=== PATIENT | female | born 2005 | race Caucasian/White ===

== ENCOUNTER 2024-11-27 19:59 | Emergency (ER) | payer OTHER, SELFPAY ==
[2024-11-27 20:01] VITALS: BP 133/75; PULSE 88; RESP 16; TEMP 36.8; O2SAT 97; BMI 25.5
--- OUTSIDE RECORDS SUMMARY | 2024-11-27 20:01 | XMS_ITS | Encounter Summary ---
Author Organization [facility] Address [address] [place] [address] Care Team Providers Care Poultry Slaughterer Name Role Phone Elijah Gaming (Ana Maria) Primary Care Provider Unavailable Encounter Details Date Type Department Care Team (Late st Contact Info) Description 12/28/2005 Outpatient Historical [facility], [facility] [address] [place], [place] [address] Social History Tobacco Use Types Packs/Day Years Used Date Smoking Tobacco: Never Assessed Comments Unknown Sex and Gender Information Value Date Recorded Sex Assigned at Not on file Legal Sex Female 7:49 AM CERTIFIED TRAVEL COUNSELOR Gender Identity Not on file Sexual Orientation Not on file documented as of this encounter Plan of Treatment Not on file documented as of this encounter Visit Diagnoses Not on filedocumented in this encounter Care Teams Poultry Slaughterer Relationship Specialty Start Date End Date Elijah Gaming MD (Rvpcs) PCP - General 12/04/15 documented as of this encounter
--- OUTSIDE RECORDS SUMMARY | 2024-11-27 20:01 | XMS_ITS | Encounter Summary ---
Author Organization [facility] Address [address] [place] [address] Care Team Providers Care Fire Extinguisher Technician Name Role Phone Elijah Gaming (Ana Maria) Primary Care Provider Unavailable Encounter Details Date Type Department Care Team (Late st Contact Info) Description 04/04/2007 Emergency [facility] Emergency Department [address] [place] [address] Carl Noel MD Unspecified Otitis Media (Primary Dx) Social History Tobacco Use Types Packs/Day Years Used Date Smoking Tobacco: Never Assessed Comments Unknown Sex and Gender Information Value Date Recorded Sex Assigned at Not on file Legal Sex Female 7:49 AM ART CONSULTANT Gender Identity Not on file Sexual Orientation Not on file documented as of this encounter Plan of Treatment Not on file documented as of this encounter Visit Diagnoses Diagnosis Unspecified otitis media- Primary documented in this encounter Care Teams Fire Extinguisher Technician Relationship Specialty Start Date End Date Elijah Gaming MD (Rvpcs) PCP - General 12/04/15 documented as of this encounter
--- OUTSIDE RECORDS SUMMARY | 2024-11-27 20:01 | XMS_ITS | Encounter Summary ---
Author Organization [facility] Address [address] [place] [phone] Care Team Providers Care Member Of The Legislative Council Name Role Phone Elijah Gaming (rey) Primary Care Provider Unavailable Encounter Details Date Type Department Care Team (Late st Contact Info) Description 04/10/2007 Outpatient Historical HIS MISCELLANEOUSSTE Outsideservice, Physician Social History Tobacco Use Types Packs/Day Years Used Date Smoking Tobacco: Never Assessed Comments Unknown Sex and Gender Information Value Date Recorded Sex Assigned at Not on file Legal Sex Female 7:49 AM INSURANCE AGENTS SUPERVISOR Gender Identity Not on file Sexual Orientation Not on file documented as of this encounter Plan of Treatment Not on file documented as of this encounter Visit Diagnoses Not on filedocumented in this encounter Care Teams Member Of The Legislative Council Relationship Specialty Start Date End Date Elijah Gaming MD (Rvpcs) PCP - General 12/04/15 documented as of this encounter
--- OUTSIDE RECORDS SUMMARY | 2024-11-27 20:01 | XMS_ITS | Encounter Summary ---
Author Organization [facility] Address [address] [place] [address] Care Team Providers Care Warehouse Loader Name Role Phone Elijah Gaming (Ana Maria) Primary Care Provider Unavailable Encounter Details Date Type Department Care Team (Late st Contact Info) Description 12/28/2005 Outpatient [facility] [address] [place], [place] [address] Social History Tobacco Use Types Packs/Day Years Used Date Smoking Tobacco: Never Assessed Comments Unknown Sex and Gender Information Value Date Recorded Sex Assigned at Not on file Legal Sex Female 7:49 AM YOUTH MINISTER Gender Identity Not on file Sexual Orientation Not on file documented as of this encounter Plan of Treatment Not on file documented as of this encounter Visit Diagnoses Not on filedocumented in this encounter Care Teams Warehouse Loader Relationship Specialty Start Date End Date Elijah Gaming MD (Rvpcs) PCP - General 12/04/15 documented as of this encounter
--- OUTSIDE RECORDS SUMMARY | 2024-11-27 20:01 | XMS_ITS | Encounter Summary ---
Author Organization [facility] Address [address] [place] [phone] Care Team Providers Care Kiln Hand Name Role Phone Elijah Gaming (Ana Maria) Primary Care Provider Unavailable Encounter Details Date Type Department Care Team (Latest Contact Info) Description 01/24/2005 Outpatient Historical HIS RADIOLOGY, [facility] Elijah Gaming (Ana Maria)MD NO ADDRESS ON FILE NERVOUSNESS (Primary Dx) Social History Tobacco Use Types Packs/Day Years Used Date Smoking Tobacco: Never Assessed Comments Unknown Sex and Gender Information Value Date Recorded Sex Assigned at Not on file Legal Sex Female 7:49 AM GAMING INVESTIGATOR Gender Identity Not on file Sexual Orientation Not on file documented as of this encounter Plan of Treatment Not on file documented as of this encounter Visit Diagnoses Diagnosis Signs and symptoms involving emotional state- Primary documented in this encounter Care Teams Kiln Hand Relationship Specialty Start Date End Date Elijah Gaming MD (Rvpcs) PCP - General 12/04/15 documented as of this encounter
--- OUTSIDE RECORDS SUMMARY | 2024-11-27 20:01 | XMS_ITS | Encounter Summary ---
Author Organization [facility] Address [address] [place] [phone] Care Team Providers Care Erosion Control Specialist Name Role Phone Elijah Gaming (Ana Maria) Primary Care Provider Unavailable Encounter Details Date Type Department Care Team (Late st Contact Info) Description 01/18/2005 Outpatient Historical HIS [facility] (REF LAB)Elijah Vincent (MD Tobi NO ADDRESS ON FILE Social History Tobacco Use Types Packs/Day Years Used Date Smoking Tobacco: Never Assessed Comments Unknown Sex and Gender Information Value Date Recorded Sex Assigned at Not on file Legal Sex Female 7:49 AM PEDIATRIC NURSE Gender Identity Not on file Sexual Orientation Not on file documented as of this encounter Plan of Treatment Not on file documented as of this encounter Visit Diagnoses Not on filedocumented in this encounter Care Teams Erosion Control Specialist Relationship Specialty Start Date End Date Elijah Gaming MD (Rvpcs) PCP - General 12/04/15 documented as of this encounter
--- OUTSIDE RECORDS SUMMARY | 2024-11-27 20:01 | XMS_ITS | Encounter Summary ---
Author Organization [facility] Address [address] [place] [phone] Care Team Providers Care Social And Human Services Assistant Name Role Phone Elijah Gaming (Ana Maria) Primary Care Provider Unavailable Encounter Details Date Type Department Care Team (Latest Contact Info) Description 2004 Inpatient Historical HIS 4NE - NURSERYElijah Vincent MD (Rvpcs) NO ADDRESS ON FILE TWIN,MATE [facility]-HOSP-NO C/DELIVERY (Primary Dx) Social History Tobacco Use Types Packs/Day Years Used Date Smoking Tobacco: Never Assessed Comments Unknown Sex and Gender Information Value Date Recorded Sex Assigned at Not on file Legal Sex Female 7: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
--- OUTSIDE RECORDS SUMMARY | 2024-11-27 20:01 | XMS_ITS | Encounter Summary ---
Author Organization [facility] Address [address] [place] [address] Care Team Providers Care Network Engineering Advisor Name Role Phone Elijah Gaming (Ana Maria) Primary Care Provider Unavailable Encounter Details Date Type Department Care Team (Late st Contact Info) Description 12/23/2005 Outpatient Historical HIS [facility]GERY, [facility] [address] [place], [place] [address] Social History Tobacco Use Types Packs/Day Years Used Date Smoking Tobacco: Never Assessed Comments Unknown Sex and Gender Information Value Date Recorded Sex Assigned at Not on file Legal Sex Female 7:49 AM RANGE TECHNICIAN Gender Identity Not on file Sexual Orientation Not on file documented as of this encounter Plan of Treatment Not on file documented as of this encounter Visit Diagnoses Not on filedocumented in this encounter Care Teams Network Engineering Advisor Relationship Specialty Start Date End Date Elijah Gaming MD (Rvpcs) PCP - General 12/04/15 documented as of this encounter
--- OUTSIDE RECORDS SUMMARY | 2024-11-27 20:01 | XMS_ITS | Encounter Summary ---
Author Organization [facility] Address [address] [place] [address] Care Team Providers Care Bottle Hop Name Role Phone Elijah Gaming (Ana Maria) Primary Care Provider Unavailable Encounter Details Date Type Department Care Team (Late st Contact Info) Description 12/23/2005 Outpatient Historical [facility], [facility] [address] [place], [place] [id number] Social History Tobacco Use Types Packs/Day Years Used Date Smoking Tobacco: Never Assessed Comments Unknown Sex and Gender Information Value Date Recorded Sex Assigned at Not on file Legal Sex Female 7:49 AM STRESS TEST TECHNICIAN Gender Identity Not on file Sexual Orientation Not on file documented as of this encounter Plan of Treatment Not on file documented as of this encounter Visit Diagnoses Not on filedocumented in this encounter Care Teams Bottle Hop Relationship Specialty Start Date End Date Elijah Gaming MD (Rvpcs) PCP - General 12/04/15 documented as of this encounter
--- OUTSIDE RECORDS SUMMARY | 2024-11-27 20:01 | XMS_ITS | Clinical Summary ---
Author Organization [facility] [place] Address [address] [place] [address] Phone Care Team Providers Care It Security Specialist Name Role Phone Elijah Gaming (Rvs) Primary Care Provider Unavailable Allergies No known active allergies Medications No known medications Active Problems Problem Noted Date Diagnosed Date Fracture, toe 04/03/2013 Social History Tobacco Use Types Packs/Day Years Used Date Smoking Tobacco: Never Assessed Comments Unknown Sex and Gender Information Value Date Recorded Sex Assigned at Not on file Legal Sex Female 7:49 AM ENRICHMENT SPECIALIST Gender Identity Not on file Sexual Orientation Not on file Last Filed Vital Signs Vital Sign Reading Time Taken Comments Blood Pressure 99/59 05/01/2013 8:41 AM CDT Pulse 83 05/01/2013 8:41 AM CDT Temperature - - Respiratory Rate - - Oxygen Saturation - - Inhaled Oxygen Concentration - - Weight 33.6 kg (74 lb) 05/01/2013 8:41 AM CDT Height 137.2 cm (4' 6) 05/01/2013 8:41 AM CDT Body Mass Index 17.84 05/01/2013 8:41 AM CDT Plan of Treatment Health Maintenance Due Date Last Done Comments CHLAMYDIA SCREENING (ANNUAL) 11-24 YEARS 2015 HPV VACCINES (1 - 3-dose series) 2019 DTAP/TDAP/TD VACCINES (1 - Tdap) 2023 HEPATITIS B VACCINES (1 of 3 - 19+ 3-dose series) 2023 INFLUENZA VACCINE (#1) 2024 PNEUMOCOCCAL VACCINE 0-64 YEARS Aged Out No longer eligible based on patient's age to complete this topic Insurance [facility] [place] MEM[place] Care Teams It Security Specialist Relationship Specialty Start Date End Date Elijah Gaming (Rvrey)MD PCP - General 12/04/15
--- NOTE | 2024-11-27 20:12 | ED_ITS ---
HPI - General Adult General Chief complaint: Laceration/Wound Stated complaint: elbowed in eye Time Seen by Provider: 11/27/24 20:12 History of Present Illness HPI narrative: Pt was playing basketball game approx 1900, was struck in the Right eyebrow/Right eye by another player's elbow. Denies LOC. Pt reports some pain in her eye when looking to the right. Otherwise states vision intact. 19-year-old young woman presenting the emergency department after being struck in the right periorbital area by an elbow during basketball game. No diplopia, no visual changes. Has sustained a laceration requiring evaluation. No neck or back pain. Does play forward. Noted by friends who accompanied to be quite a player. Related Data Home Medications ?Medication ?Instructions ?Recorded ?Confirmed No Known Home Medications 11/27/24 11/27/24 Allergies Allergy/AdvReac Type Severity Reaction Status Date / Time No Known Drug Allergies Allergy Verified 06/28/24 13:38 Review of Systems Status of ROS: Reports: 6 or more systems reviewed and unremarkable except as noted in History and below [facility] Social History Smoking Status: Never smoker How often do you have a drink containing alcohol: never How often do you have six or more drinks on one occasion: Never AUDIT-C Alcohol total score: 0 Non-prescribed substance use: denies use Exam Narrative: Exam Narrative: Pleasant. NAD. Moving all extremities without difficulty. Neck is supple nontender. Cranial nerves 2-12 intact. Pupils are 3 mm and equal. No hyphema appreciated. No subconjunctival hemorrhage. Extraocular movements are full. There is a 3 cm arced laceration over the inferior lateral right eye orbital rim. Lightly gapping and bleeds lightly when manipulated. Think this is partial dermal. The does not appear to be excessive underlying pain or defect to the periorbital bone. Const: Vital Signs, click to edit/add: Vital Signs - 24 hr 11/27/24 20:01 Temperature 98.3 F Pulse Rate [Pulse Oximeter] 88 Respiratory Rate 16 Blood Pressure [Ri ght Upper Arm] 133/75 Pulse Oximetry 97 Oxygen Delivery Me thod Room Air Documenting provider has reviewed patient's vital signs: yes Course Vital Signs Vital signs: Initial Vital Signs Temperature 98.3 F 11/27/24 20:01 Temperature Source Temporal Artery Scan 11/27/24 20:01 Pulse Rate 88 11/27/24 20:01 Respiratory Rate 16 11/27/24 20:01 Blood Pressure 133/75 11/27/24 20:01 Blood Pressure Mean 94 11/27/24 20:01 Blood Pressure Position Sitting 11/27/24 20:01 Pulse Oximetry 97 11/27/24 20:01 Oxygen Delivery Method Room Air 11/27/24 20:01 Vital Signs Temperature 98.3 F 11/27/24 20:01 Pulse Rate 88 11/27/24 20:01 Respiratory Rate 16 11/27/24 20:01 Blood Pressure 133/75 11/27/24 20:01 Pulse Oximetry 97 11/27/24 20:01 Oxygen Delivery Method Room Air 11/27/24 20:01 Temperature 98.3 F 11/27/24 20:01 Pulse Rate 88 11/27/24 20:01 Respiratory Rate 16 11/27/24 20:01 Blood Pressure 133/75 11/27/24 20:01 Pulse Oximetry 97 11/27/24 20:01 Oxygen Delivery Method Room Air 11/27/24 20:01 Medical Decision Making MDM Narrative Medical decision making narrative: Does not appear to require further evaluation or cares beyond This laceration should be repaired as will continue to bleed and will certainly create a larger scar. Does not appear to have sustained other notable injury. Did discuss options for care. I think there will be too much tension for glue. Sutures would be a good option but she would prefer Steri-Strips if possible. I think Steri-Strips are a fine option here. I returned to clean with Shur-Clens type solution. Applied benzoin and placed 3 1/8 inch Steri-Strips with very good wound approximation and control of bleeding. Tolerated well. See patient discharge plan for further discussion for further scar reduction/wound healing if desired -- after the scab falls off, can apply daily vitamin e oil or something like maderma or silicone-containing ointments or bandaids daily. especially protect from sun exposure for the first 9 - 12 months. Watch for spreading redness after 2 days accompanied by heat, swelling, marked increase in pain, purulent drainage. can trim steri-strip ends as they begin to peel away. try to encourage steri-strips to remain on for 5 days. Don't actually peel the Steri-Strips off; they should fall off on their own. Will probably need to protect with dry Band-Aid while playing. Can cut most of the adhesive strip off of a Band-Aid so does not grab so much on both sides. Okay to briefly get wet but try not to soak while steri-strips on. antibiotic ointment probably not necessary and will encourage steri-strips to fall off. Medical Records Medical records reviewed: Yes I reviewed the patient's medical records Discharge Plan Discharge Clinical Impression: Laceration of face, Closed head injury Patient Disposition: Home, Self-Care Condition: Improved Additional Instructions: for further scar reduction/wound healing if desired -- after the scab falls off, can apply daily vitamin e oil or something like maderma or silicone-containing ointments or bandaids daily. especially protect from sun exposure for the first 9 - 12 months. Watch for spreading redness after 2 days accompanied by heat, swelling, marked increase in pain, purulent drainage. can trim steri-strip ends as they begin to peel away. try to encourage steri-strips to remain on for 5 days. Don't actually peel the Steri-Strips off; they should fall off on their own. Will probably need to protect with dry Band-Aid while playing. Can cut most of the adhesive strip off of a Band-Aid so does not grab so much on both sides. Okay to briefly get wet but try not to soak while steri-strips on. antibiotic ointment probably not necessary and will encourage steri-strips to fall off. Prescriptions: No Action No Known Home Medications Follow Up/Referrals: Provider,Not a Local [Primary Care Provider] - Stand Alone Forms: [employer] Info Instructions
--- OUTSIDE RECORDS SUMMARY | 2024-11-27 20:35 | XMS_ITS | Clinical Summary ---
Author Organization [facility] [place] Address [address] [place] [address] Phone Care Team Providers Care Kosher Inspector Name Role Phone Elijah Gaming (Rvs) Primary Care Provider Unavailable Allergies No known active allergies Medications No known medications Active Problems Problem Noted Date Diagnosed Date Fracture, toe 04/03/2013 Social History Tobacco Use Types Packs/Day Years Used Date Smoking Tobacco: Never Assessed Comments Unknown Sex and Gender Information Value Date Recorded Sex Assigned at Not on file Legal Sex Female 7:49 AM HELICOPTER PILOT Gender Identity Not on file Sexual Orientation [...] patient's age to complete this topic Insurance [facility] [place] NON [place] MEMBER Care Teams Kosher Inspector Relationship Specialty Start Date End Date Elijah Gaming (Rvrey)MD PCP - General 12/04/15
--- OUTSIDE RECORDS SUMMARY | 2024-11-27 20:35 | XMS_ITS | Encounter Summary ---
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
--- OUTSIDE RECORDS SUMMARY | 2024-11-27 20:35 | XMS_ITS | Encounter Summary ---
Author Organization [facility] Address [address] [place] [address] Care Team Providers Care Art Educator Name Role Phone Elijah Gaming (Ana Maria) Primary Care Provider Unavailable Encounter Details Date Type Department Care Team (Late st Contact Info) Description 12/23/2005 Outpatient Historical [facility] [address] [place], [place] [id number] Social History Tobacco Use Types Packs/Day Years Used Date Smoking Tobacco: Never Assessed Comments Unknown Sex and Gender Information Value Date Recorded Sex Assigned at Not on file Legal Sex Female 7:49 AM PROGRAM MANAGEMENT PROFESSIONAL Gender Identity Not on file Sexual Orientation Not on file documented as of this encounter Plan of Treatment Not on file documented as of this encounter Visit Diagnoses Not on filedocumented in this encounter Care Teams Art Educator Relationship Specialty Start Date End Date Elijah Gaming MD (Rvpcs) PCP - General 12/04/15 documented as of this encounter
--- OUTSIDE RECORDS SUMMARY | 2024-11-27 20:35 | XMS_ITS | Encounter Summary ---
Author Organization [facility] Address [address] [place] [address] Care Team Providers Care Pricing Manager Name Role Phone Elijah Gaming (Ana Maria) Primary Care Provider Unavailable Encounter Details Date Type Department Care Team (Late st Contact Info) Description 04/04/2007 Emergency [facility] Emergency Department [address] [place] [address] Carl Noel MD Unspecified Otitis Media (Primary Dx) Social History Tobacco Use Types Packs/Day Years Used Date Smoking Tobacco: Never Assessed Comments Unknown Sex and Gender Information Value Date Recorded Sex Assigned at Not on file Legal Sex Female 7:49 AM REGIONAL ENVIRONMENTAL MANAGER Gender Identity Not on file Sexual Orientation Not on file documented as of this encounter Plan of Treatment Not on file documented as of this encounter Visit Diagnoses Diagnosis Unspecified otitis media- Primary documented in this encounter Care Teams Pricing Manager Relationship Specialty Start Date End Date Elijah Gaming MD (Rvpcs) PCP - General 12/04/15 documented as of this encounter
--- OUTSIDE RECORDS SUMMARY | 2024-11-27 20:35 | XMS_ITS | Encounter Summary ---
Author Organization [facility] Address [address] [place] [address] Care Team Providers Care Saas Architect Name Role Phone Elijah Gaming (Ana Maria) Primary Care Provider Unavailable Encounter Details Date Type Department Care Team (Late st Contact Info) Description 12/28/2005 Outpatient Historical HIS SURG[facility], [facility] [address] [place], [place] [id number] Social History Tobacco Use Types Packs/Day Years Used Date Smoking Tobacco: Never Assessed Comments Unknown Sex and Gender Information Value Date Recorded Sex Assigned at Not on file Legal Sex Female 7: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
--- OUTSIDE RECORDS SUMMARY | 2024-11-27 20:35 | XMS_ITS | Encounter Summary ---
Author Organization [facility] Address [address] [place] [phone] Care Team Providers Care Compliance Administrator Name Role Phone Elijah Gaming (Ana Maria) Primary Care Provider Unavailable Encounter Details Date Type Department Care Team (Late st Contact Info) Description 01/18/2005 Outpatient Historical [facility]Elijah Vincent (MD [place] NO ADDRESS ON FILE Social History Tobacco Use Types Packs/Day Years Used Date Smoking Tobacco: Never Assessed Comments Unknown Sex and Gender Information Value Date Recorded Sex Assigned at Not on file Legal Sex Female 7:49 AM ONCOLOGY NAVIGATOR Gender Identity Not on file Sexual Orientation Not on file documented as of this encounter Plan of Treatment Not on file documented as of this encounter Visit Diagnoses Not on filedocumented in this encounter Care Teams Compliance Administrator Relationship Specialty Start Date End Date Elijah Gaming MD (Rvpcs) PCP - General 12/04/15 documented as of this encounter
--- OUTSIDE RECORDS SUMMARY | 2024-11-27 20:35 | XMS_ITS | Encounter Summary ---
Author Organization 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
--- OUTSIDE RECORDS SUMMARY | 2024-11-27 20:35 | XMS_ITS | Encounter Summary ---
Author Organization 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
--- OUTSIDE RECORDS SUMMARY | 2024-11-27 20:35 | XMS_ITS | Encounter Summary ---
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
--- OUTSIDE RECORDS SUMMARY | 2024-11-27 20:35 | XMS_ITS | Encounter Summary ---
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
== END 2024-11-27 20:58 | disposition home or self-care (01) ==
PROVIDERS: Emergency Provider Family Medicine
DX: S01.111A Laceration without foreign body of right eyelid and periocular area, initial encounter (principal); W50.0XXA Accidental hit or strike by another person, initial encounter; Y93.67 Activity, basketball
CPT/HCPCS: 99283; 99284